=== PATIENT | male | born 1995 | race Caucasian/White ===

== ENCOUNTER 2018-05-18 08:11 | Emergency (ER) | payer BC ==
[2018-05-18 08:16] VITALS: O2SAT 98
--- NOTE | 2018-05-18 08:25 | ED PDOC ---
HPI: General Adult Time Seen by Provider: 05/18/18 08:15 Chief Complaint (Nursing): ENT Problem History Per: Patient Onset/Duration Of Symptoms: Days (3) Current Symptoms Are (Timing): Still Present Severity: Moderate Additional Complaint(s): Right ear pain assoc with decreased hearing x 3 days. No fever or drainage. Has been using earbuds and q tips. Past Medical History Vital Signs: Last Vital Signs Temp 97.7 F 05/18/18 08:15 Pulse 91 H 05/18/18 08:15 Resp 17 05/18/18 08:15 BP 131/79 05/18/18 08:15 Pulse Ox 98 05/18/18 08:18 - Medical History PMH: No Chronic Diseases - Family History Family History: States: Unknown Family Hx - Immunization History Hx Tetanus Toxoid Vaccination: No Hx Influenza Vaccination: No Hx Pneumococcal Vaccination: No - Home Medications Home Medications: Ambulatory Orders Medication Instructions Recorded Amoxicillin/Clavulanate [Augmentin 1 tab PO Q12 #20 tab 05/18/18 875 MG-125 MG] Neomycin/Polymyxin/Hydrocortis 3 drop OT TID #1 bottle 05/18/18 [Cortisporin Otic Susp] traMADol [Ultram] 50 mg PO Q8 #10 tab 05/18/18 - Allergies Allergies/Adverse Reactions: Allergies Allergy/AdvReac Type Severity Reaction Status Date / Time No Known Allergies Allergy Verified 05/18/18 08:18 Review of Systems Constitutional: Negative for: Fever ENT: Positive for: Ear Pain. Negative for: Ear Discharge, Throat Pain Physical Exam - Physical Exam Appears: Positive for: Non-toxic, No Acute Distress Skin: Positive for: Normal Color, Warm, DRY ENT: Positive for: Other (Right ear, ext canal swollen and erythemetous. No fluctuance. Unable to see TM) - ECG O2 Sat by Pulse Oximetry: 98 Medical Decision Making Medical Decision Making: Will start on Augmentin and cortisporin and have pt f/u with ENT by tomorrow as unable to see TM due to swelling Disposition - Clinical Impression Clinical Impression: Otitis externa - Patient ED Disposition Is Patient to be Admitted: No Counseled Patient/Family Regarding: Diagnosis, Need For Followup, Rx Given - Disposition Referrals: Emiliano Haney MD [Staff Provider] - Disposition: Routine/Home Disposition Time: 08:26 Condition: FAIR Prescriptions: Amoxicillin/Clavulanate [Augmentin 875 MG-125 MG] 1 tab PO Q12 #20 tab Neomycin/Polymyxin/Hydrocortis [Cortisporin Otic Susp] 3 drop OT TID #1 bottle traMADol [Ultram] 50 mg PO Q8 #10 tab Instructions: Outer Ear Infection
[2018-05-18 08:38] VITALS: BP 120/70; PULSE 74; RESP 20; TEMP 98
== END 2018-05-18 08:38 | disposition home or self-care (01) ==
LOC: H.ER 08:11
DX: H60.91 Unspecified otitis externa, right ear (principal)